=== PATIENT | female | born 1980 | race Caucasian/White ===

== ENCOUNTER 2020-05-24 15:40 | Observation (INO) | payer OTHER ==
[~2020-05-24] VITALS: Ht 167.6 cm; Wt 75.2 kg
[2020-05-24] MEDS ORDERED: PRENATAL TABLE1 EAC2 PO (18:17)
[2020-05-24] MEDS ORDERED: ASPI81CH PO (18:18)
--- NOTE | 2020-05-24 18:28 | NUR ---
[facility]WAN[facility] SUCCESS CLASS SCHEDULED 05/31 AT 1100 WITH DARRYL
== END 2020-05-24 20:05 | disposition home or self-care (01) ==
LOC: OBS 15:40 → BC 15:42 → OBS 16:55 → BC 16:56
PROVIDERS: ADMIT Obstetrics & Gynecology
DX: O36.8330 Maternal care for abnormalities of the fetal heart rate or rhythm, third trimester, not applicable or unspecified (principal); Z3A.34 34 weeks gestation of pregnancy; Z79.82 Long term (current) use of aspirin; Z79.899 Other long term (current) drug therapy
CPT/HCPCS: 36415; 59025; 76816; 76819; 82947; 83036; G0378

== ENCOUNTER → 2020-06-13 | Outpatient (CLI) | payer OTHER ==
[~2020-06-13] MED LIST: ASPI81CH PO; IBUP800 PO; PRENATAL TABLE1 EAC2 PO
== END | disposition home or self-care (01) ==
LOC: LAB 12:14 → LAB SHORT 12:14
DX: O09.523 Supervision of elderly multigravida, third trimester (principal)
CPT/HCPCS: 87081; 87150

== ENCOUNTER 2020-06-26 05:10 | Inpatient (IN) | payer OTHER ==
[~2020-06-26] VITALS: Ht 167.6 cm; Wt 77.0 kg
[~2020-06-26 05:10] MED LIST changes: -IBUP800 PO
[2020-06-26 06:00] LABS: BASOPHILS ABSOLUTE AUTO 0.03 K/mm3 (0.00-0.23); BASOPHILS PERCENT AUTO 0 % (0-2); EOSINOPHILS ABSOLUTE AUTO 0.03 K/mm3 (0.00-0.68); EOSINOPHILS PERCENT AUTO 0 % (0-6); Hemoglobin 13.6 g/dL (11.5-16.0); IMMATURE GRAN PERCENT AUTO 1 % (0-1); LYMPHOCYTES ABSOLUTE AUTO 1.66 K/mm3 (0.84-5.20); LYMPHOCYTES PERCENT AUTO 22 % (21-46); MONOCYTES ABSOLUTE AUTO 0.62 K/mm3 (0.16-1.47); MONOCYTES PERCENT AUTO 8 % (4-13); Mean Corpuscular HGB 32.9 pg (26.0-34.0); Mean Corpuscular HGB Conc 34.9 g/dL (31.5-36.5); Mean Corpuscular Volume 94 fL (80-100); Mean Platelet Volume 11.5 fL (9.1-12.4); NEUTROPHILS ABSOLUTE AUTO 5.08 K/mm3 (1.96-9.15); NEUTROPHILS PERCENT AUTO 68 % (41-73); Platelet Count 170 K/mm3 (150-400); RDW Coefficient Variation 14.1 % (11.7-14.2); RDW Standard Deviation 48.8 fL (35.1-46.3); Red Blood Cell Count 4.13 M/mm3 (3.80-5.20); White Blood Cell Count 7.52 K/mm3 (4.00-11.30)
[2020-06-26 07:14] LABS: Influenza A, PCR Negative (NEGATIVE); Influenza B, PCR Negative (NEGATIVE); Resp Syncytial Virus, PCR Negative (NEGATIVE); SARS-Cov-2 (COVID-19) PCR, MMC Negative (NEGATIVE)
[2020-06-27 06:08] LABS: Hematocrit 34.5 % (33.0-51.0); Hemoglobin 11.6 g/dL (11.5-16.0); Mean Corpuscular HGB 32.4 pg (26.0-34.0); Mean Corpuscular HGB Conc 33.6 g/dL (31.5-36.5); Mean Corpuscular Volume 96 fL (80-100); Mean Platelet Volume 11.1 fL (9.1-12.4); Platelet Count 134 K/mm3 (150-400); RDW Coefficient Variation 14.1 % (11.7-14.2); RDW Standard Deviation 50.3 fL (35.1-46.3); Red Blood Cell Count 3.58 M/mm3 (3.80-5.20); White Blood Cell Count 8.98 K/mm3 (4.00-11.30)
[2020-06-27] MEDS ORDERED: IBUP800 PO (07:28)
--- NOTE | 2020-06-27 09:00 | NUR ---
WOULD LIKE TO GO HOME WHEN THEY CAN, THEY HAVE A 3+ HOUR CAR RIDE HOME, THEY ARE AWARE THEY WILL NEED TO STOP EVERY 90MILES TO GET BABY OUT OF CAR SEAT AND FOR MOM TO WALK AROUND FOR A 10-15 MINUTES UNTIL THEY REACH HOME. THEY ARE AWARE THAT DOING THIS WILL DECREASE THE BABYS CHANCE OF SIDS FROM SITTING IN THE CAR SEAT TOO LONG. BOTH PATIENT AND FOB VERBALIZED UNDERSTANDING
--- NOTE | 2020-06-27 11:05 | NUR ---
DISCHARGE INSTRRUCTIONS REVIEWED WITH PATIENT AND S/O. PATIENT AND S/O VERBALIZED UNDERSTANDING
--- NOTE | 2020-06-27 12:02 | NUR ---
will be doing a phone call for follow up appointment.
--- NOTE | 2020-06-27 15:58 | NUR ---
SEE BABY CHART ABOUT FOLLOWUP APPOINTMENT AND WHAT THE PLAN OF CARE IS, THEY WILL RETURN Friday- FOR PPFU, BUT IF ABLE TO [facility]FFORD TO PAY OUT OF POCKET FOR [facility] C[facility] THEY WILL FOLLOW UP FOR BABY ONLY AND NOT PATIENT AND THEN WILL SEE DR DAIGLE AT 2WEEKS FOR FOLLOWUP.
== END 2020-06-27 15:10 | disposition home or self-care (01) | DRG 807 ==
LOC: OBS 05:10 → BC 05:33
PROVIDERS: ADMIT Obstetrics & Gynecology
PROC: 10E0XZZ Delivery of Products of Conception, External Approach (ICD-10-PCS; principal; 2020-06-26)
PROC: 00HU33Z Insertion of Infusion Device into Spinal Canal, Percutaneous Approach (ICD-10-PCS; 2020-06-26)
PROC: 3E0R3BZ Introduction of Anesthetic Agent into Spinal Canal, Percutaneous Approach (ICD-10-PCS; 2020-06-26)
DX: O24.420 Gestational diabetes mellitus in childbirth, diet controlled (principal); Z37.0 Single live birth; Z20.828 Contact with and (suspected) exposure to other viral communicable diseases; Z3A.39 39 weeks gestation of pregnancy
CPT/HCPCS: 0241U; 36415; 51702; 82947; 85025; 85027; J1885; J2001; J2590; J3010; J7120